=== PATIENT | female | born 1980 | race American Indian/Alaskan Native ===

== ENCOUNTER 2021-06-10 12:03 | Outpatient (CLI) | payer OTHER ==
--- NOTE | 2021-06-10 15:08 | XRay Report ---
Pelvis one view INDICATION: Pain FINDINGS: Extensive postoperative change from hardware in left acetabulum. Degenerative changes seen in bilateral hips. Sacrum and sacroiliac joints appear normal. No acute findings. Signer Name: Waldo Langford MD Signed: 06/10/2021 3:04 PM Workstation Name: [id number]
--- NOTE | 2021-06-10 15:10 | XRay Report ---
Right tibia and fibula 4 views INDICATION: Pain FINDINGS: Intramedullary valentin within the tibia. Old fracture deformities with healing of the tibia and fibula shafts. No acute findings are seen. There is a small amount of lucency surrounding the distal aspect of the inferior screw. Signer Name: Waldo Langford MD Signed: 06/10/2021 3:06 PM Workstation Name: [id number]
--- NOTE | 2021-06-10 15:25 | XRay Report ---
Left ankle-2 views INDICATION: LEFT ANKLE PAIN. COMPARISON: None. IMPRESSION: Intact lateral malleolus and syndesmotic construct with no hardware complication identif ied. Normal alignment. Mild tibiotalar degenerative arthrosis. Soft tissues are normal. Normal alig nment. Signer Name: Skip Herman MD Signed: 06/10/2021 3:21 PM Workstation Name: [id number]
--- NOTE | 2021-06-10 15:26 | XRay Report ---
Left femur-4 views INDICATION: LEFT FEMUR PAIN. COMPARISON: None. IMPRESSION: Left acetabular fixation is intact with no hardware complication identified. Soft tissu es are normal. Normal alignment. 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 Signer Name: Skip Herman MD Signed: 06/10/2021 3:21 PM Workstation Name: [id number]
== END 2021-06-10 12:04 | disposition home or self-care (01) ==
LOC: XRAY 12:03
PROVIDERS: ATTEND Orthopaedic Surgery
DX: M17.12 Unilateral primary osteoarthritis, left knee (principal); M19.072 Primary osteoarthritis, left ankle and foot; M16.0 Bilateral primary osteoarthritis of hip; R10.2 Pelvic and perineal pain
CPT/HCPCS: 72170

== ENCOUNTER 2021-08-18 13:59 | Outpatient (CLI) | payer OTHER ==
--- NOTE | 2021-08-18 15:28 | XRay Report ---
BILATERAL ANKLE 4 VIEW(S) INDICATION / CLINICAL INFORMATION: BILATERAL ANKLE PAIN COMPARISON: 06/10/2021 FINDINGS: BONES / JOINT(S): No acute fracture or subluxation. No significant arthritis. Patient is status post plate and screw fixation of the left distal fibula, as well as fixation of the left distal tibiofibul ar syndesmosis. There is less than 2 mm of lucency surrounding the tibiofibular syndesmosis screws. P atient is status post intramedullary valentin through the right tibia with screws through the right distal tibiofibular syndesmosis. There is less than 2 mm lucency surrounding the distal screw. Posttraumati c changes seen to the right distal tibia and fibula. SOFT TISSUES: No significant abnormality. ADDITIONAL FINDINGS: None. Signer Name: Alvin Vega DO Signed: 08/18/2021 3:23 PM Workstation Name: [id number]
--- NOTE | 2021-08-18 15:29 | XRay Report ---
RIGHT TIBIA-FIBULA 2 VIEW(S) INDICATION / CLINICAL INFORMATION: RIGHT TIB/FIB PAIN COMPARISON: 06/10/2021 FINDINGS: BONES / JOINT(S): No acute fracture or subluxation. No significant arthritis. Patient is status post intramedullary valentin through the tibia. The hardware is well seated. There is post right change to the distal tibia and distal fibula. SOFT TISSUES: No significant abnormality. ADDITIONAL FINDINGS: None. Signer Name: Alvin Vega DO Signed: 08/18/2021 3:24 PM Workstation Name: [id number]
--- NOTE | 2021-08-18 15:30 | XRay Report ---
LEFT HIP 3 VIEW(S) INDICATION / CLINICAL INFORMATION: LEFT HIP PAIN COMPARISON: 06/10/2021 FINDINGS: BONES / JOINT(S): No acute fracture or subluxation. No significant arthritis. Patient is status post plate and screw fixation of the left acetabulum. Hardware is well seated. SOFT TISSUES: Metallic density is noted overlying the right hemipelvis which is new compared to previ ous radiograph and may be foreign body. ADDITIONAL FINDINGS: None. Signer Name: Alvin Vega DO Signed: 08/18/2021 3:26 PM Workstation Name: [id number]
== END 2021-08-18 14:00 | disposition home or self-care (01) ==
LOC: XRAY 13:59
PROVIDERS: ATTEND Internal Medicine
DX: M25.572 Pain in left ankle and joints of left foot (principal); M25.571 Pain in right ankle and joints of right foot; M25.552 Pain in left hip; M79.661 Pain in right lower leg